=== PATIENT | male | born 1975 | race Caucasian/White ===

== ENCOUNTER 2023-09-30 08:42 | Inpatient (IN) | payer MEDICAID ==
[2023-09-30] MEDS ORDERED: LORazepam 2 MG TABLET PO PRN (13:45)
[2023-09-30] MEDS ORDERED: INFLUENZA VIRUS VACCINE QVS 2023-24 (6MO+)/PF 60 MCG/0.5 ML SYRINGE IM. ONE (14:45)
[2023-09-30 16:10] VITALS: BP 90/72; PULSE 80; RESP 18; TEMP 97.8; O2SAT 100
[2023-09-30] MEDS: NICOTINE 21 MG/24 HOUR PATCH TD SCH (19:22)
[2023-09-30 20:31] VITALS: BP 113/69; PULSE 94; RESP 18; TEMP 97.7
[2023-09-30] MEDS: ZOLPIDEM TARTRATE 10 MG TABLET PO PRN (21:55)
[2023-10-01] MEDS ORDERED: DOCUSATE SODIUM 100 MG CAPSULE PO PRN (05:30)
[2023-10-01] MEDS ORDERED: ONDANSETRON HCL 4 MG TABLET PO PRN (05:30)
[2023-10-01] MEDS ORDERED: IBUPROFEN 600 MG TABLET PO PRN (05:30)
[2023-10-01] MEDS ORDERED: ALBUTEROL SULFATE HFA 90 MCG/PUFF 8 GM INHALER IH PRN (05:30)
[2023-10-01] MEDS ORDERED: BACITRACIN 28 GM OINTMENT TP PRN (05:30)
[2023-10-01] MEDS ORDERED: PETROLATUM,WHITE 28 GM JELLY TP PRN (05:30)
[2023-10-01] MEDS ORDERED: MAGNESIUM HYDROXIDE SUSPENSION 30 ML UDCUP PO PRN (05:30)
[2023-10-01] MEDS ORDERED: LOPERAMIDE HCL 2 MG CAPSULE PO PRN (05:30)
[2023-10-01] MEDS ORDERED: CloNIDine HCL 0.1 MG TABLET PO PRN (05:30)
[2023-10-01] MEDS ORDERED: BENZOCAINE/MENTHOL LOZENGE PO PRN (05:30)
[2023-10-01] MEDS ORDERED: ACETAMINOPHEN 325 MG TABLET PO PRN (05:30)
[2023-10-01] MEDS ORDERED: MAG HYDROX/ALUMINUM HYD/SIMETH ES 30 ML SUSPENSION UDCUP PO PRN (05:30)
[2023-10-01] MEDS ORDERED: OMEPRAZOLE 20 MG CAPSULE PO PRN (05:30)
[2023-10-01 08:07] LABS: BASOPHILS % (AUTO) 1.1 % (0.0-2.0); EOSINOPHILS % (AUTO) 5.5 % (1.0-6.0); HEMATOCRIT 41.3 % (41-53); HEMOGLOBIN 14.2 g/dL (13.5-17.5); LYMPHOCYTES # (AUTO) 1.5 K/uL (1.0-4.8); LYMPHOCYTES % (AUTO) 28.9 % (22.0-44.0); MEAN CORPUSCULAR HEMOGLOBIN 32.6 pg (26.0-34.0); MEAN CORPUSCULAR HGB CONC 34.3 G/dL (31.0-37.0); MEAN CORPUSCULAR VOLUME 95 fL (80-100); MONOCYTES # (AUTO) 0.6 K/uL (0.1-1.0); MONOCYTES % (AUTO) 12.2 % (2.0-9.0); NEUTROPHILS # (AUTO) 2.8 K/uL (1.8-7.7); NEUTROPHILS % (AUTO) 52.3 % (40.0-70.0); PLATELET COUNT (AUTO) 257 K/uL (150-450); RED BLOOD CELL COUNT(AUTO) 4.35 MIL/uL (4.50-5.90); RED CELL DISTRIBUTION WIDTH 13.8 % (11.5-14.5); WHITE BLOOD COUNT (AUTO) 5.3 K/uL (4.5-11.0)
[2023-10-01] MEDS: NICOTINE 21 MG/24 HOUR PATCH TD SCH (08:13)
[2023-10-01 08:35] LABS: HEMOGLOBIN A1C 5.5 % (3.8-5.6)
[2023-10-01 08:47] LABS: CHOL/HDL RATIO 3.6 (4.2-7.3); CHOLESTEROL 197 mg/dL (131-200); FREE T4 (FREE THYROXINE) 0.68 ng/dL (0.76-1.46); HDL CHOLESTEROL 55 mg/dL (40-60); LDL CHOL (CALC.) 129 mg/dL (0-130); THYROID STIMULATING HORMONE 0.71 uIU/mL (0.36-3.74); TRIGLYCERIDES 63 mg/dL (15-150)
[2023-10-01 09:04] LABS: ALANINE AMINOTRANSFERASE 23 U/L (12-78); ALBUMIN 3.2 g/dL (3.4-5.0); ALKALINE PHOSPHATASE 79 U/L (46-116); ANION GAP 6 mmol/L (8-16); ASPARTATE AMINOTRANSFERASE 21 U/L (15-37); BILIRUBIN,TOTAL 0.2 mg/dL (0.1-1.0); CALCIUM, TOTAL 8.9 mg/dL (8.8-10.5); CARBON DIOXIDE 28 mmol/L (22-29); CHLORIDE 104 mmol/L (98-107); CREATININE 0.79 mg/dL (0.60-1.30); GLOMERULAR FILTR. RATE CALC > 60 mL/min (>60); GLUCOSE,RANDOM 91 mg/dL (70-110); POTASSIUM 4.5 mmol/L (3.5-5.1); SODIUM SERUM 138 mmol/L (136-145); TOTAL PROTEIN, SERUM 6.9 g/dL (6.4-8.2); UREA NITROGEN, BLOOD 15 mg/dL (7-18)
[2023-10-01] MEDS ORDERED: LORazepam 2 MG/ML VIAL ONE (16:24)
[2023-10-01] MEDS ORDERED: DiphenhydrAMINE HCL 50 MG/ML VIAL ONE (16:24)
[2023-10-01] MEDS ORDERED: HALOPERIDOL LACTATE 5 MG/ML VIAL ONE (16:24)
[2023-10-01] MEDS ORDERED: DiphenhydrAMINE HCL 50 MG/ML VIAL IM ONE (16:30)
[2023-10-01] MEDS ORDERED: HALOPERIDOL LACTATE 5 MG/ML VIAL IM ONE (16:30)
[2023-10-01] MEDS ORDERED: LORazepam 2 MG/ML VIAL IM ONE (16:30)
[2023-10-01 19:07] VITALS: RESP 18
[2023-10-01] MEDS: OLANZapine 10 MG TABLET PO SCH (21:00)
[2023-10-01 22:32] VITALS: RESP 18
[2023-10-02] MEDS: DIVALPROEX SODIUM 500 MG DR TABLET PO SCH (09:00)
[2023-10-02] MEDS: NICOTINE 21 MG/24 HOUR PATCH TD SCH (09:00)
[2023-10-02 10:02] VITALS: RESP 18
[2023-10-02] MEDS: OLANZapine 10 MG TABLET PO SCH (20:25)
[2023-10-02 21:00] VITALS: RESP 18
[2023-10-03] MEDS: DIVALPROEX SODIUM 500 MG DR TABLET PO SCH (09:00)
[2023-10-03] MEDS: NICOTINE 21 MG/24 HOUR PATCH TD SCH (09:52)
[2023-10-03 11:26] VITALS: BP 105/70; PULSE 98; RESP 18; TEMP 98; O2SAT 99
[2023-10-03] MEDS: ZOLPIDEM TARTRATE 10 MG TABLET PO PRN (20:09)
[2023-10-03] MEDS: OLANZapine 10 MG TABLET PO SCH (20:09)
[2023-10-03 21:37] VITALS: BP 125/76; PULSE 70; RESP 18; TEMP 98.9; O2SAT 95
[2023-10-03] MEDS: HALOPERIDOL 5 MG TABLET PO PRN (23:46)
[2023-10-04] MEDS: HALOPERIDOL 5 MG TABLET PO PRN (08:41)
[2023-10-04] MEDS: NICOTINE 21 MG/24 HOUR PATCH TD SCH (08:41)
[2023-10-04] MEDS: DIVALPROEX SODIUM 500 MG DR TABLET PO SCH (09:00)
[2023-10-04 10:01] VITALS: BP 118/72; PULSE 99; RESP 18; TEMP 97.5; O2SAT 97
[2023-10-04] MEDS ORDERED: OLAN10TA74 PO (14:03)
[2023-10-04] MEDS ORDERED: DIVA-112 PO (14:03)
== END 2023-10-04 17:24 | disposition home or self-care (01) | DRG 750 ==
LOC: B3A 14:06
PROVIDERS: ADMIT Psychiatry & Neurology Psychiatry; ATTEND Psychiatry & Neurology Psychiatry
DX: F20.9 Schizophrenia, unspecified (principal); F19.10 Other psychoactive substance abuse, uncomplicated; F41.9 Anxiety disorder, unspecified; G47.00 Insomnia, unspecified; K59.00 Constipation, unspecified; Z59.00 Homelessness unspecified
CPT/HCPCS: 80053; 80061; 83036; 84439; 84443; 85025; J1200; J1630; J2060